=== PATIENT | male | born 1935 | race Native Hawaiian/Other Pacific Islander ===

== ENCOUNTER 2016-07-08 10:50 | Outpatient (CLI) | payer OTHER ==
[~2016-07-08 10:50] MED LIST: AMIT25TA22 PO; AMLO2.5T PO; AMOX875T8 PO; ASA LOW STR81 MG PO; BENICAR20 MG PO; BYSTOLIC2.5 MG PO; CARDURA XL4 MG PO; CLOP75TA2 PO; ENTERIC COATED325 MG PO; FLUOXETINE20 MG PO; FURO20TA67 PO; GLIP10TA66 PO; HYDR25TA60 PO; HYDROCHLOROT12.5 M1 PO; LEVEMIR SC; LEVO0.0529 PO; LEVOTHROID25 MCG PO; LIPITOR40 MG PO; METO25TA4 PO; MOBIC15 MG PO; NAPROSYN500 MG PO; NOVOLOG SC; PANT40TA PO; POTA20TA4 PO; PRAVACHOL20 MG PO; TAMS0.4C PO; TRAM50TA PO; ZYRTEC ALLGY10 MG PO
== END 2016-07-08 11:50 | disposition home or self-care (01) ==
LOC: US 10:50
DX: I73.89 Other specified peripheral vascular diseases (principal)

== ENCOUNTER 2016-08-17 08:29 | Outpatient (CLI) | payer OTHER ==
[2016-08-17 08:52] LABS: PLATELET COUNT 275 K/uL (142-355)
[2016-08-17 09:03] LABS: POTASSIUM 4.1 mmol/L (3.6-5.2)
== END 2016-08-17 09:29 | disposition home or self-care (01) ==
LOC: LABW 08:29
PROVIDERS: Nurse Practitioner
DX: E11.9 Type 2 diabetes mellitus without complications (principal); I25.10 Atherosclerotic heart disease of native coronary artery without angina pectoris; Z12.5 Encounter for screening for malignant neoplasm of prostate; E55.9 Vitamin D deficiency, unspecified; R53.83 Other fatigue; E78.00 Pure hypercholesterolemia, unspecified; R97.20 Elevated prostate specific antigen [PSA]
CPT/HCPCS: 36415; 80053; 80061; 82043; 82306; 82570; 83036; 84153; 84443; 85027

== ENCOUNTER 2016-09-12 17:18 | Outpatient (CLI) | payer OTHER | END 2016-09-12 17:24 | disposition short-term general hospital (02) | LOC: AMB 17:18 | DX: R53.1 Weakness (principal); R41.82 Altered mental status, unspecified; R51 Headache | CPT/HCPCS: A0425; A0427 ==

== ENCOUNTER 2016-09-12 17:25 | Emergency (ER) | payer OTHER ==
[~2016-09-12] VITALS: Ht 185.4 cm; Wt 79.4 kg
[2016-09-12 17:30] VITALS: TEMP 98.1
[2016-09-12 17:39] LABS: PLATELET COUNT 308 K/uL (142-355)
[2016-09-12 17:43] LABS: POTASSIUM 5.1 mmol/L (3.6-5.2)
[2016-09-12 17:53] LABS: PARTIAL THROMBOPLASTIN TIME 25.2 SECONDS (24.5-33.6)
[2016-09-12 18:52] VITALS: BP 159/65
== END 2016-09-12 18:57 | disposition short-term general hospital (02) ==
LOC: ED 17:25
PROVIDERS: Family Medicine
DX: G45.8 Other transient cerebral ischemic attacks and related syndromes (principal); I10 Essential (primary) hypertension; M62.81 Muscle weakness (generalized); E11.65 Type 2 diabetes mellitus with hyperglycemia; Z79.4 Long term (current) use of insulin; R41.82 Altered mental status, unspecified
CPT/HCPCS: 36415; 80053; 82550; 82962; 84484; 85027; 85610; 85730; 93005; 99291

== ENCOUNTER 2016-09-12 18:58 | Outpatient (CLI) | payer OTHER | END 2016-09-12 20:07 | disposition short-term general hospital (02) | LOC: AMB 18:58 | DX: G45.8 Other transient cerebral ischemic attacks and related syndromes (principal); I10 Essential (primary) hypertension; M62.81 Muscle weakness (generalized); E11.65 Type 2 diabetes mellitus with hyperglycemia; Z79.4 Long term (current) use of insulin; R41.82 Altered mental status, unspecified | CPT/HCPCS: A0425; A0427 ==

== ENCOUNTER 2016-10-23 21:25 | Inpatient (IN) | payer OTHER ==
[~2016-10-23] VITALS: Ht 172.7 cm; Wt 83.9 kg
[2016-10-23 22:04] VITALS: BP 173/96; TEMP 97.8
[2016-10-23 22:07] LABS: PLATELET COUNT 226 K/uL (142-355)
[2016-10-23 22:17] LABS: POTASSIUM 4.2 mmol/L (3.6-5.2); SODIUM 133 mmol/L (136-145)
[2016-10-23] MEDS ORDERED: LIPITOR80 MG PO (22:26)
[2016-10-23] MEDS ORDERED: LISI5TAB10 PO (22:27)
[2016-10-23] MEDS ORDERED: CLOP75TA2 PO (22:28)
[2016-10-23] MEDS ORDERED: GABA300C2 PO (22:28)
[2016-10-23] MEDS ORDERED: XARELTO20 MG PO (22:29)
[2016-10-23] MEDS ORDERED: HYDR5TAB9 PO (22:30)
[2016-10-23] MEDS ORDERED: NEOMYCIN/POLYMYXIN/H OP (22:34)
[2016-10-24] VITALS (23 sets, daily range): BP systolic 135–184; BP diastolic 58–83; TEMP 97–100.6
[2016-10-24 07:38] LABS: PLATELET COUNT 178 K/uL (142-355)
[2016-10-24 07:52] LABS: POTASSIUM 4.4 mmol/L (3.6-5.2)
[2016-10-25] VITALS (24 sets, daily range): BP systolic 134–205; BP diastolic 57–94; TEMP 97.5–99.2
[2016-10-25 06:12] LABS: PLATELET COUNT 183 K/uL (142-355)
[2016-10-25 06:15] LABS: POTASSIUM 3.8 mmol/L (3.6-5.2); SODIUM 137 mmol/L (136-145)
[2016-10-26] VITALS (18 sets, daily range): BP systolic 140–203; BP diastolic 59–107; TEMP 97.8–98.7
[2016-10-26 05:57] LABS: PLATELET COUNT 179 K/uL (142-355)
[2016-10-26 07:49] LABS: POTASSIUM 3.8 mmol/L (3.6-5.2); SODIUM 140 mmol/L (136-145)
[2016-10-27] VITALS (8 sets, daily range): BP systolic 140–175; BP diastolic 60–98; TEMP 98.2–98.5
[2016-10-27 05:47] LABS: PLATELET COUNT 171 K/uL (142-355)
[2016-10-27 06:15] LABS: POTASSIUM 3.6 mmol/L (3.6-5.2); SODIUM 140 mmol/L (136-145)
== END 2016-10-27 14:50 | disposition short-term general hospital (02) | DRG 440 ==
LOC: ED 21:25 → ICU 10-24 00:20
PROVIDERS: ADMIT Emergency Medicine
DX: K85.10 Biliary acute pancreatitis without necrosis or infection (principal); Z86.73 Personal history of transient ischemic attack (TIA), and cerebral infarction without residual deficits; K80.80 Other cholelithiasis without obstruction; D64.9 Anemia, unspecified; I10 Essential (primary) hypertension; E11.9 Type 2 diabetes mellitus without complications
CPT/HCPCS: 36415; 80048; 80053; 81000; 82150; 82550; 82962; 83690; 83735; 84484; 85027; 86318; 87040; 93005; 96361; 96372; 96374; 96376; 99285; J0360; J0744; J1200; J1650; J1885; J2175; J2405; J3411; J3475; J3490; Q9963

== ENCOUNTER 2016-10-27 14:57 | Outpatient (CLI) | payer OTHER ==
[~2016-10-27 14:57] MED LIST changes: +GABA300C2 PO; +HYDR5TAB9 PO; +LIPITOR80 MG PO; +LISI5TAB10 PO; +NEOMYCIN/POLYMYXIN/H OP; +XARELTO20 MG PO
== END 2016-10-27 15:16 | disposition short-term general hospital (02) ==
LOC: AMB 14:57
DX: K85.10 Biliary acute pancreatitis without necrosis or infection (principal); Z86.73 Personal history of transient ischemic attack (TIA), and cerebral infarction without residual deficits; K80.80 Other cholelithiasis without obstruction; D64.9 Anemia, unspecified; I10 Essential (primary) hypertension; E11.9 Type 2 diabetes mellitus without complications
CPT/HCPCS: A0425; A0429

== ENCOUNTER 2016-12-30 11:11 | Outpatient (CLI) | payer OTHER ==
[2016-12-30] MEDS ORDERED: PREG75CA PO (12:55)
[2016-12-30] MEDS ORDERED: TIZA4TAB5 PO (12:56)
[2016-12-30] MEDS ORDERED: LEVEMIR SC (12:58)
[2016-12-30] MEDS ORDERED: FLONASE AL50 MCG/ACT (17:45)
[2016-12-30] MEDS ORDERED: PRINIVIL5 MG OR (17:46)
[2016-12-30] MEDS ORDERED: ROBAXIN-750750 MG PO (17:47)
[2016-12-30] MEDS ORDERED: NEOMSUS6 OP (17:50)
== END 2016-12-30 11:15 | disposition short-term general hospital (02) ==
LOC: AMB 11:11
DX: R53.83 Other fatigue (principal); R53.1 Weakness
CPT/HCPCS: A0425; A0427

== ENCOUNTER 2016-12-30 11:15 | Inpatient (IN) | payer OTHER ==
[~2016-12-30] VITALS: Ht 172.7 cm; Wt 76.7 kg
[2016-12-30] VITALS (7 sets, daily range): BP systolic 128–201; BP diastolic 60–88; TEMP 97.5–97.9; Ht 172.7 cm; Wt 76.7 kg
[2016-12-30 12:05] LABS: PLATELET COUNT 235 K/uL (142-355)
[2016-12-30 12:13] LABS: POTASSIUM 4.7 mmol/L (3.6-5.2); SODIUM 136 mmol/L (136-145)
[2016-12-30] MEDS ORDERED: PREG75CA PO (12:55)
[2016-12-30] MEDS ORDERED: TIZA4TAB5 PO (12:56)
[2016-12-30] MEDS ORDERED: LEVEMIR SC (12:58)
[2016-12-30] MEDS ORDERED: FLONASE AL50 MCG/ACT (17:45)
[2016-12-30] MEDS ORDERED: PRINIVIL5 MG OR (17:46)
[2016-12-30] MEDS ORDERED: ROBAXIN-750750 MG PO (17:47)
[2016-12-30] MEDS ORDERED: NEOMSUS6 OP (17:50)
[2016-12-31] VITALS: BP 193/89; TEMP 97.3
[2016-12-31 04:00] VITALS: BP 163/71; TEMP 97.8
[2016-12-31 05:01] LABS: PLATELET COUNT 221 K/uL (142-355)
[2016-12-31 05:30] LABS: POTASSIUM 3.9 mmol/L (3.6-5.2); SODIUM 139 mmol/L (136-145)
[2016-12-31 08:00] VITALS: BP 170/72; TEMP 98.4
[2016-12-31 12:00] VITALS: BP 151/66; TEMP 98
[2016-12-31 16:00] VITALS: BP 138/69; TEMP 98
[2016-12-31 20:00] VITALS: BP 158/67; TEMP 98.3
[2017-01-01 00:04] VITALS: BP 136/64; TEMP 98.2
[2017-01-01 04:00] VITALS: BP 174/77; TEMP 98.5
[2017-01-01 05:44] LABS: PLATELET COUNT 214 K/uL (142-355)
[2017-01-01 08:00] VITALS: BP 147/88; TEMP 98.3
[2017-01-01 12:00] VITALS: BP 147/71; TEMP 98
--- NOTE | 2017-01-01 19:27 | NUR ---
193 PT LEFT VIA WC WITH FAMILY NO ACUATE DISTRESS NOTED. HOME MEDS RETURNED TO PT
== END 2017-01-01 19:21 | disposition home or self-care (01) | DRG 65 ==
LOC: ED 11:15 → MED/SURG 14:00
PROVIDERS: Emergency Medicine; ADMIT Emergency Medicine
DX: I63.412 Cerebral infarction due to embolism of left middle cerebral artery (principal); N39.0 Urinary tract infection, site not specified; G81.94 Hemiplegia, unspecified affecting left nondominant side; E03.8 Other specified hypothyroidism; R39.2 Extrarenal uremia; E88.09 Other disorders of plasma-protein metabolism, not elsewhere classified; E11.9 Type 2 diabetes mellitus without complications; N18.3 Chronic kidney disease, stage 3 (moderate)
CPT/HCPCS: 36415; 80053; 80307; 80320; 80329; 81000; 82550; 82948; 83605; 83735; 83880; 84443; 84484; 85027; 85610; 85730; 87088; 93005; 93306; 96360; 99284; G0479

== ENCOUNTER 2017-04-05 13:49 | Emergency (ER) | payer OTHER ==
[~2017-04-05] VITALS: Ht 172.7 cm; Wt 72.6 kg
[~2017-04-05 13:49] MED LIST changes: +FLONASE AL50 MCG/ACT; +NEOMSUS6 OP; +PREG75CA PO; +PRINIVIL5 MG OR; +ROBAXIN-750750 MG PO; +TIZA4TAB5 PO
[2017-04-05 14:00] VITALS: TEMP 97.9
[2017-04-05 14:37] LABS: PLATELET COUNT 238 K/uL (142-355)
[2017-04-05 14:45] LABS: POTASSIUM 4.3 mmol/L (3.6-5.2)
[2017-04-05 14:56] LABS: PARTIAL THROMBOPLASTIN TIME 26.1 SECONDS (24.5-33.6)
[2017-04-05 15:14] VITALS: BP 172/84
== END 2017-04-05 15:20 | disposition home or self-care (01) ==
LOC: ED 13:49
PROVIDERS: Family Medicine
DX: M79.604 Pain in right leg (principal); I73.89 Other specified peripheral vascular diseases
CPT/HCPCS: 36415; 80053; 81000; 85027; 85610; 85730; 87040; 87077; 87185; 87186; 87205; 99283

== ENCOUNTER 2017-05-25 09:21 | Emergency (ER) | payer OTHER ==
[~2017-05-25] VITALS: Ht 172.7 cm; Wt 80.7 kg
[2017-05-25 09:28] VITALS: TEMP 97.8
[2017-05-25 13:00] VITALS: BP 180/72
== END 2017-05-25 13:06 | disposition home or self-care (01) ==
LOC: ED 09:21
DX: T81.4XXA Infection following a procedure, initial encounter (principal); Z85.828 Personal history of other malignant neoplasm of skin
CPT/HCPCS: 96372; 99282; J0696

== ENCOUNTER 2017-05-26 10:50 | Emergency (ER) | payer OTHER ==
[~2017-05-26] VITALS: Ht 172.7 cm; Wt 81.6 kg
[2017-05-26 12:39] VITALS: BP 160/70; TEMP 98.1
== END 2017-05-26 12:46 | disposition home or self-care (01) ==
LOC: ED 10:50
DX: Z48.01 Encounter for change or removal of surgical wound dressing (principal)
CPT/HCPCS: 99281

== ENCOUNTER 2017-05-27 14:17 | Emergency (ER) | payer OTHER ==
[~2017-05-27] VITALS: Ht 172.7 cm; Wt 77.1 kg
[2017-05-27 14:24] VITALS: TEMP 98.1
[2017-05-27 15:19] VITALS: BP 156/74
== END 2017-05-27 15:28 | disposition home or self-care (01) ==
LOC: ED 14:17
DX: Z48.01 Encounter for change or removal of surgical wound dressing (principal)
CPT/HCPCS: 99282

== ENCOUNTER 2017-07-25 09:41 | Outpatient (CLI) | payer OTHER | END 2017-07-25 19:40 | disposition home or self-care (01) | LOC: RAD 09:41 | DX: M79.672 Pain in left foot (principal) ==

== ENCOUNTER 2017-09-06 12:02 | Emergency (ER) | payer OTHER ==
[~2017-09-06] VITALS: Ht 172.7 cm; Wt 83.9 kg
[2017-09-06] MEDS ORDERED: METFORMIN HCL500 M1 PO (12:16)
[2017-09-06] MEDS ORDERED: ASPIR-8181 MG PO (12:17)
[2017-09-06 12:40] LABS: PLATELET COUNT 227 K/uL (142-355)
[2017-09-06 13:05] VITALS: BP 161/84; TEMP 98.1
== END 2017-09-06 13:05 | disposition home or self-care (01) ==
LOC: ED 12:02
PROVIDERS: Family Medicine
DX: S99.822A Other specified injuries of left foot, initial encounter (principal); W20.8XXA Other cause of strike by thrown, projected or falling object, initial encounter; Y92.89 Other specified places as the place of occurrence of the external cause
CPT/HCPCS: 36415; 80053; 85027; 96372; 99283; J1885; J2405

== ENCOUNTER → 2018-01-17 | Outpatient (CLI) | payer OTHER ==
[~2018-01-17] MED LIST changes: +ASPIR-8181 MG PO; +DOCU100C10 PO; +FERROUS SULF325 M1 PO; +INSUINJP SC; +LISI20TA11 PO; +LYRICA 100 MG100 MG PO; +LYRICA100 MG PO; +METFORMIN HCL500 M1 PO; +PEPCID20 MG PO
== END | disposition short-term general hospital (02) ==
LOC: AMB 13:52
DX: R41.82 Altered mental status, unspecified (principal)
CPT/HCPCS: A0425; A0427

== ENCOUNTER 2018-01-18 11:42 | Outpatient (CLI) | payer OTHER ==
[~2018-01-18 11:42] MED LIST changes: -LYRICA100 MG PO
== END 2018-01-18 11:54 | disposition short-term general hospital (02) ==
LOC: AMB 11:42
DX: R07.89 Other chest pain (principal); Z86.73 Personal history of transient ischemic attack (TIA), and cerebral infarction without residual deficits; E03.8 Other specified hypothyroidism; I73.89 Other specified peripheral vascular diseases; E11.65 Type 2 diabetes mellitus with hyperglycemia; I12.9 Hypertensive chronic kidney disease with stage 1 through stage 4 chronic kidney disease, or unspecified chronic kidney disease; E11.22 Type 2 diabetes mellitus with diabetic chronic kidney disease; N18.4 Chronic kidney disease, stage 4 (severe); R41.82 Altered mental status, unspecified
CPT/HCPCS: A0425; A0429

== ENCOUNTER 2018-04-09 09:44 | Emergency (ER) | payer OTHER ==
[~2018-04-09] VITALS: Ht 172.7 cm; Wt 77.6 kg
[2018-04-09 09:53] VITALS: TEMP 98.01
[2018-04-09] MEDS ORDERED: LYRICA100 MG PO (09:56)
[2018-04-09 13:18] VITALS: BP 155/98
== END 2018-04-09 13:18 | disposition home or self-care (01) ==
LOC: ED 09:44
DX: S40.012A Contusion of left shoulder, initial encounter (principal); S40.022A Contusion of left upper arm, initial encounter; W17.89XA Other fall from one level to another, initial encounter; Y92.89 Other specified places as the place of occurrence of the external cause
CPT/HCPCS: 99283

== ENCOUNTER 2018-04-15 20:03 | Outpatient (CLI) | payer OTHER ==
[~2018-04-15 20:03] MED LIST changes: +LYRICA100 MG PO
== END 2018-04-15 20:08 | disposition short-term general hospital (02) ==
LOC: AMB 20:03
DX: M54.89 Other dorsalgia (principal); W17.89XA Other fall from one level to another, initial encounter; Z91.81 History of falling; Y93.89 Activity, other specified; Y92.018 Other place in single-family (private) house as the place of occurrence of the external cause
CPT/HCPCS: A0425; A0427

== ENCOUNTER 2018-04-15 20:11 | Emergency (ER) | payer OTHER ==
[~2018-04-15] VITALS: Ht 172.7 cm; Wt 77.6 kg
[2018-04-15 20:11] VITALS: TEMP 98.1
[2018-04-15 21:16] LABS: PLATELET COUNT 212 K/uL (142-355)
[2018-04-15 23:05] VITALS: BP 198/79
== END 2018-04-15 23:05 | disposition home or self-care (01) ==
LOC: ED 20:11
PROVIDERS: Allergy & Immunology
DX: S40.012A Contusion of left shoulder, initial encounter (principal); S40.022A Contusion of left upper arm, initial encounter; S00.93XA Contusion of unspecified part of head, initial encounter; S10.83XA Contusion of other specified part of neck, initial encounter; S09.8XXA Other specified injuries of head, initial encounter; M79.602 Pain in left arm; W18.39XA Other fall on same level, initial encounter; Y92.89 Other specified places as the place of occurrence of the external cause
CPT/HCPCS: 80053; 85027; 96372; 99283; J1885; J2175

== ENCOUNTER 2018-06-29 14:14 | Outpatient (CLI) | payer OTHER | END 2018-06-29 20:38 | disposition home or self-care (01) | LOC: RAD 14:14 | DX: M25.519 Pain in unspecified shoulder (principal) ==

== ENCOUNTER 2018-07-28 21:04 | Emergency (ER) | payer OTHER ==
[~2018-07-28] VITALS: Ht 172.7 cm; Wt 77.6 kg
[2018-07-28 21:05] VITALS: TEMP 98.6
[2018-07-28 22:26] LABS: PLATELET COUNT 170 K/uL (142-355)
[2018-07-28 22:37] LABS: SODIUM 138 mmol/L (136-145)
[2018-07-29 01:02] VITALS: BP 159/69
== END 2018-07-29 01:51 | disposition home or self-care (01) ==
LOC: ED 21:04
PROVIDERS: Family Medicine
DX: G25.2 Other specified forms of tremor (principal); M25.512 Pain in left shoulder; N28.9 Disorder of kidney and ureter, unspecified
CPT/HCPCS: 36415; 36600; 80053; 81000; 82550; 82553; 82805; 83605; 84484; 85027; 87040; 93005; 99283

== ENCOUNTER 2018-09-04 12:40 | Emergency (ER) | payer OTHER ==
[~2018-09-04] VITALS: Ht 172.7 cm; Wt 77.6 kg
[2018-09-04 13:00] VITALS: TEMP 98.2
[2018-09-04 15:17] VITALS: BP 160/69
== END 2018-09-04 15:18 | disposition home or self-care (01) ==
LOC: ED 12:40
DX: S22.32XA Fracture of one rib, left side, initial encounter for closed fracture (principal); R07.89 Other chest pain; R51 Headache; W17.89XA Other fall from one level to another, initial encounter; Y93.H9 Activity, other involving exterior property and land maintenance, building and construction; Y92.89 Other specified places as the place of occurrence of the external cause
CPT/HCPCS: 99283; J1885

== ENCOUNTER 2018-12-14 07:19 | Outpatient (CLI) | payer OTHER | END 2018-12-14 19:40 | disposition home or self-care (01) | LOC: NM 07:19 | DX: R07.89 Other chest pain (principal) | CPT/HCPCS: 93005; A9500; J2785 ==

== ENCOUNTER 2018-12-14 11:55 | Emergency (ER) | payer OTHER ==
[~2018-12-14] VITALS: Ht 172.7 cm; Wt 72.6 kg
[2018-12-14 12:52] LABS: PLATELET COUNT 205 K/uL (142-355)
[2018-12-14 13:17] LABS: POTASSIUM 4.6 mmol/L (3.6-5.2); SODIUM 137 mmol/L (136-145)
[2018-12-14 19:05] VITALS: BP 135/64; TEMP 98.1
== END 2018-12-14 19:05 | disposition short-term general hospital (02) ==
LOC: ED 11:55
PROVIDERS: Student in an Organized Health Care Education/Training Program
DX: R07.89 Other chest pain (principal); R94.39 Abnormal result of other cardiovascular function study; R10.13 Epigastric pain
CPT/HCPCS: 36415; 80053; 81000; 82150; 83690; 84484; 85027; 93005; 96374; 96375; 96376; 99284; J0360; J1885; J2405; Q9963

== ENCOUNTER 2018-12-14 19:15 | Outpatient (CLI) | payer OTHER | END 2018-12-14 20:32 | disposition short-term general hospital (02) | LOC: AMB 19:15 | DX: R07.89 Other chest pain (principal); M25.512 Pain in left shoulder; R51 Headache; M79.605 Pain in left leg; M79.604 Pain in right leg; R94.39 Abnormal result of other cardiovascular function study | CPT/HCPCS: A0425; A0427 ==

== ENCOUNTER 2019-01-05 13:23 | Emergency (ER) | payer OTHER ==
[~2019-01-05] VITALS: Ht 172.7 cm; Wt 72.6 kg
[2019-01-05 13:25] VITALS: TEMP 98.1
[2019-01-05 14:58] VITALS: BP 148/64
== END 2019-01-05 14:58 | disposition home or self-care (01) ==
LOC: ED 13:23
DX: S09.8XXA Other specified injuries of head, initial encounter (principal); S60.212A Contusion of left wrist, initial encounter; S90.02XA Contusion of left ankle, initial encounter; M54.89 Other dorsalgia; W01.0XXA Fall on same level from slipping, tripping and stumbling without subsequent striking against object, initial encounter; Y92.89 Other specified places as the place of occurrence of the external cause
CPT/HCPCS: 99283

== ENCOUNTER 2019-03-18 15:53 | Observation (INO) | payer OTHER ==
[~2019-03-18] VITALS: Ht 172.7 cm; Wt 75.6 kg
[2019-03-18 16:07] VITALS: BP 232/96; TEMP 209.8
[2019-03-18 16:21] LABS: PLATELET COUNT 174 K/uL (142-355)
[2019-03-18 16:30] LABS: SODIUM 135 mmol/L (136-145)
[2019-03-18 16:37] LABS: PARTIAL THROMBOPLASTIN TIME 24.1 SECONDS (24.5-33.6)
[2019-03-18 16:44] VITALS: BP 220/93
[2019-03-18 19:07] VITALS: BP 82/43; TEMP 97.9; Ht 172.7 cm; Wt 75.6 kg
[2019-03-18 20:00] VITALS: BP 80/43; TEMP 98.2
[2019-03-18 23:53] VITALS: BP 113/63; TEMP 98.3
[2019-03-19 03:58] VITALS: BP 96/49; TEMP 97.6
[2019-03-19 08:00] VITALS: BP 113/58; TEMP 97.77
[2019-03-19 12:08] VITALS: BP 116/57; TEMP 97.9
== END 2019-03-19 13:45 | disposition home or self-care (01) ==
LOC: ED 15:53 → MED/SURG 17:00
PROVIDERS: ADMIT Hospitalist
DX: R07.89 Other chest pain (principal); R06.02 Shortness of breath; E11.9 Type 2 diabetes mellitus without complications; I25.10 Atherosclerotic heart disease of native coronary artery without angina pectoris; E78.00 Pure hypercholesterolemia, unspecified; R19.7 Diarrhea, unspecified; Z95.1 Presence of aortocoronary bypass graft; R11.2 Nausea with vomiting, unspecified; I50.9 Heart failure, unspecified; K31.84 Gastroparesis; R53.1 Weakness; I11.0 Hypertensive heart disease with heart failure
CPT/HCPCS: 36415; 80053; 81000; 82150; 82550; 83036; 83690; 83880; 84484; 85027; 85610; 85730; 93005; 96374; 96375; 99220; 99284; G0378; J1170; J1815; J1940

== ENCOUNTER 2019-04-16 15:22 | Emergency (ER) | payer OTHER ==
[~2019-04-16] VITALS: Ht 172.7 cm; Wt 77.7 kg
[2019-04-16 15:32] VITALS: TEMP 98.7
[2019-04-16 18:10] VITALS: BP 128/80
== END 2019-04-16 18:10 | disposition home or self-care (01) ==
LOC: ED 15:22
DX: M25.572 Pain in left ankle and joints of left foot (principal); M77.32 Calcaneal spur, left foot
CPT/HCPCS: 96372; 99283; J1885

== ENCOUNTER 2019-06-01 11:14 | Emergency (ER) | payer OTHER ==
[~2019-06-01] VITALS: Ht 172.7 cm; Wt 77.6 kg
[2019-06-01 11:35] VITALS: TEMP 98.1
[2019-06-01 14:15] VITALS: BP 181/90
== END 2019-06-01 14:15 | disposition home or self-care (01) ==
LOC: ED 11:14
DX: J06.9 Acute upper respiratory infection, unspecified (principal)
CPT/HCPCS: 87502; 87651; 96372; 99283; J1885

== ENCOUNTER 2019-06-18 14:07 | Inpatient (IN) | payer OTHER ==
[2019-06-18] VITALS (9 sets, daily range): BP systolic 136–165; BP diastolic 55–84; TEMP 97.6–99; Ht 172.7 cm; Wt 78.6 kg
[~2019-06-18] VITALS: Ht 172.7 cm; Wt 78.6 kg
[2019-06-18 14:47] LABS: PLATELET COUNT 168 K/uL (142-355)
[2019-06-18 15:01] LABS: POTASSIUM 4.5 mmol/L (3.6-5.2); SODIUM 133 mmol/L (136-145)
[2019-06-18] MEDS ORDERED: CARV6.25 PO (17:25)
[2019-06-18] MEDS ORDERED: GABA300C2 PO (17:26)
[2019-06-18] MEDS ORDERED: SIMV20TA2 PO (17:27)
[2019-06-18] MEDS ORDERED: TAMS0.4C PO (17:27)
[2019-06-18] MEDS ORDERED: PRED20TA27 PO (17:28)
[2019-06-18] MEDS ORDERED: XYZAL ALLERGY 245 MG PO (17:32)
[2019-06-18] MEDS ORDERED: TIROSINT75 MCG PO (17:33)
[2019-06-18] MEDS ORDERED: MOBIC15 MG PO (17:34)
[2019-06-18 19:27] LABS: PARTIAL THROMBOPLASTIN TIME 24.1 SECONDS (24.5-33.6)
[2019-06-19] VITALS: BP 148/70; TEMP 97.3
[2019-06-19 04:00] VITALS: BP 138/74; TEMP 97.5
[2019-06-19 08:00] VITALS: BP 144/62; TEMP 97.5
[2019-06-19 08:26] LABS: PLATELET COUNT 153 K/uL (142-355)
[2019-06-19 08:45] LABS: POTASSIUM 4.5 mmol/L (3.6-5.2)
[2019-06-19 12:00] VITALS: BP 130/52; TEMP 98.8
[2019-06-19 16:00] VITALS: BP 120/60; TEMP 98.8
[2019-06-19 20:00] VITALS: BP 140/55; TEMP 99
[2019-06-20] VITALS: BP 157/44; TEMP 98
[2019-06-20 04:00] VITALS: BP 162/67; TEMP 98.2
[2019-06-20 08:00] VITALS: BP 157/67; TEMP 97.9
[2019-06-20 12:00] VITALS: BP 148/55; TEMP 98.5
[2019-06-20 16:00] VITALS: BP 168/74; TEMP 98.9
[2019-06-20 20:00] VITALS: BP 170/67; TEMP 98.3
[2019-06-21] VITALS: BP 175/68; TEMP 98.4
[2019-06-21 04:00] VITALS: BP 195/87; TEMP 97.7
[2019-06-21 08:00] VITALS: BP 198/87; TEMP 97.8
[2019-06-21 12:00] VITALS: BP 202/80; TEMP 97.8
[2019-06-21 16:00] VITALS: BP 187/77; TEMP 97.8
[2019-06-21 20:00] VITALS: BP 165/64; TEMP 98.3
[2019-06-22 04:00] VITALS: BP 169/69; TEMP 98.4
[2019-06-22 08:00] VITALS: BP 136/58; TEMP 98.2
[2019-06-22 12:00] VITALS: BP 135/61; TEMP 98.3
[2019-06-22] MEDS ORDERED: PRED10TA27 PO (16:22)
[2019-06-22] MEDS ORDERED: AMLODIPINE BESYLATE PO (16:22)
== END 2019-06-22 17:12 | disposition home or self-care (01) | DRG 65 ==
LOC: ED 14:07 → MED/SURG 16:15
PROVIDERS: Family Medicine; ADMIT Emergency Medicine
DX: I63.89 Other cerebral infarction (principal); E87.2 Acidosis; I25.10 Atherosclerotic heart disease of native coronary artery without angina pectoris; N40.0 Benign prostatic hyperplasia without lower urinary tract symptoms; I12.9 Hypertensive chronic kidney disease with stage 1 through stage 4 chronic kidney disease, or unspecified chronic kidney disease; E11.22 Type 2 diabetes mellitus with diabetic chronic kidney disease; N18.3 Chronic kidney disease, stage 3 (moderate); F80.1 Expressive language disorder; E86.0 Dehydration; E66.8 Other obesity; I69.391 Dysphagia following cerebral infarction; R13.19 Other dysphagia
CPT/HCPCS: 36415; 80053; 80307; 81000; 82550; 83036; 83605; 83735; 83880; 84439; 84443; 84484; 84550; 85027; 85379; 85610; 85730; 87040; 87502; 87651; 93005; 93306; 96360; 96365; 96375; 99284; J0360; J0696; J1815; J2405; J3490

== ENCOUNTER 2019-06-25 16:28 | Outpatient (CLI) | payer OTHER ==
[~2019-06-25 16:28] MED LIST changes: +AMLODIPINE BESYLATE PO; +CARV6.25 PO; +PRED10TA27 PO; +PRED20TA27 PO; +SIMV20TA2 PO; +TIROSINT75 MCG PO; +XYZAL ALLERGY 245 MG PO
[2019-06-25 16:53] LABS: PLATELET COUNT 172 K/uL (142-355)
[2019-06-25 17:09] LABS: POTASSIUM 4.9 mmol/L (3.6-5.2)
== END 2019-06-25 20:20 | disposition home or self-care (01) ==
LOC: LABW 16:28
PROVIDERS: Nurse Practitioner Family
DX: E11.9 Type 2 diabetes mellitus without complications (principal); I10 Essential (primary) hypertension; R06.02 Shortness of breath; R53.83 Other fatigue
CPT/HCPCS: 36415; 80053; 84443; 85027

== ENCOUNTER 2019-06-29 15:32 | Emergency (ER) | payer OTHER ==
[~2019-06-29] VITALS: Ht 172.7 cm; Wt 78.5 kg
[2019-06-29 15:42] VITALS: TEMP 99.5
[2019-06-29 16:18] LABS: PLATELET COUNT 198 K/uL (142-355)
[2019-06-29 16:24] LABS: SODIUM 137 mmol/L (136-145)
[2019-06-29 16:25] LABS: POTASSIUM 4.9 mmol/L (3.6-5.2)
[2019-06-29] MEDS ORDERED: TIROSINT50 MCG PO (16:51)
[2019-06-29 17:02] LABS: PARTIAL THROMBOPLASTIN TIME 21.7 SECONDS (24.5-33.6)
[2019-06-29 19:50] VITALS: BP 156/71
== END 2019-06-29 20:00 | disposition home or self-care (01) ==
LOC: ED 15:44
PROVIDERS: Family Medicine
DX: G45.9 Transient cerebral ischemic attack, unspecified (principal)
CPT/HCPCS: 80053; 84484; 85027; 85610; 85730; 93005; 99284

== ENCOUNTER 2019-07-17 15:28 | Outpatient (CLI) | payer OTHER ==
[~2019-07-17 15:28] MED LIST changes: +TIROSINT50 MCG PO
== END 2019-07-17 19:31 | disposition home or self-care (01) ==
LOC: RAD 15:28
DX: I63.9 Cerebral infarction, unspecified (principal); M25.551 Pain in right hip; R47.01 Aphasia

== ENCOUNTER 2019-08-10 20:57 | Inpatient (IN) | payer OTHER ==
[~2019-08-10] VITALS: Ht 172.7 cm; Wt 76.8 kg
[2019-08-10 21:09] VITALS: BP 172/64; TEMP 98.6
[2019-08-10 22:03] LABS: PLATELET COUNT 192 K/uL (142-355)
[2019-08-10 22:13] LABS: POTASSIUM 4.7 mmol/L (3.6-5.2)
[2019-08-11] VITALS (10 sets, daily range): BP systolic 131–154; BP diastolic 53–80; TEMP 98.2–99.5; Ht 172.7 cm; Wt 76.8 kg
[2019-08-12] VITALS: BP 159/52; TEMP 99.3
[2019-08-12 04:00] VITALS: BP 146/55; TEMP 99.7
[2019-08-12 08:00] VITALS: BP 148/61; TEMP 98.7
[2019-08-12 12:00] VITALS: BP 145/63; TEMP 98.6
[2019-08-12 16:00] VITALS: BP 124/55; TEMP 98.8
[2019-08-12 20:00] VITALS: BP 141/53; TEMP 100.5
[2019-08-13] VITALS: BP 110/47; TEMP 98.9
[2019-08-13 04:00] VITALS: BP 117/57; TEMP 98.8
[2019-08-13 12:00] VITALS: BP 113/45; TEMP 99.2
[2019-08-13 14:16] VITALS: BP 113/45; TEMP 99.2
[2019-08-13 19:34] VITALS: BP 118/50; TEMP 98.4
[2019-08-13 20:19] VITALS: BP 107/41; TEMP 98.1
[2019-08-14] VITALS: BP 123/51; TEMP 98.9
[2019-08-14 04:00] VITALS: BP 142/55; TEMP 98.1
[2019-08-14 08:00] VITALS: BP 133/55; TEMP 97.4
[2019-08-14 12:00] VITALS: BP 140/58; TEMP 97.9
[2019-08-14 16:00] VITALS: BP 135/69; TEMP 98.5
[2019-08-14 20:00] VITALS: BP 133/51; TEMP 98.3
[2019-08-15] VITALS: BP 136/54; TEMP 98.4
[2019-08-15 04:00] VITALS: BP 141/56; TEMP 98.4
[2019-08-15 08:00] VITALS: BP 142/57; TEMP 98.6
[2019-08-15 12:00] VITALS: BP 130/50; TEMP 98.6
[2019-08-15 16:00] VITALS: BP 135/58; TEMP 98.5
[2019-08-15 20:00] VITALS: BP 146/57; TEMP 98.7
[2019-08-16] VITALS: BP 139/53; TEMP 98.5
[2019-08-16 04:00] VITALS: BP 151/51; TEMP 98.6
[2019-08-16 08:00] VITALS: BP 162/58; TEMP 98
[2019-08-16 12:00] VITALS: BP 123/45; TEMP 98.7
[2019-08-16 16:00] VITALS: BP 155/59; TEMP 98.3
[2019-08-16 20:00] VITALS: BP 135/53; TEMP 98.4
[2019-08-17] VITALS: BP 136/57; TEMP 98.6
[2019-08-17 04:00] VITALS: BP 163/61; TEMP 97.5
[2019-08-17 08:00] VITALS: BP 159/59; TEMP 97.6
[2019-08-17 12:00] VITALS: BP 154/63; TEMP 98.3
[2019-08-17] MEDS ORDERED: DOK100 MG PO (18:29)
[2019-08-17] MEDS ORDERED: INSUINJP SC (18:31)
[2019-08-17] MEDS ORDERED: MOBIC15 MG PO (18:32)
[2019-08-17] MEDS ORDERED: TRAMADOL HYDROC50 MG PO (18:36)
== END 2019-08-17 15:15 | disposition still patient (30) | DRG 683 ==
LOC: ED 20:57 → MED/SURG 08-11 09:49
PROVIDERS: Family Medicine; ADMIT Emergency Medicine
DX: N17.8 Other acute kidney failure (principal); I69.359 Hemiplegia and hemiparesis following cerebral infarction affecting unspecified side; M25.551 Pain in right hip; M79.631 Pain in right forearm; Z91.81 History of falling; R62.7 Adult failure to thrive; I25.10 Atherosclerotic heart disease of native coronary artery without angina pectoris; Z95.1 Presence of aortocoronary bypass graft; N40.0 Benign prostatic hyperplasia without lower urinary tract symptoms; D50.8 Other iron deficiency anemias; I10 Essential (primary) hypertension; G62.89 Other specified polyneuropathies; Z79.4 Long term (current) use of insulin; E03.8 Other specified hypothyroidism; K21.9 Gastro-esophageal reflux disease without esophagitis; Z68.25 Body mass index [BMI] 25.0-25.9, adult; E11.42 Type 2 diabetes mellitus with diabetic polyneuropathy; R53.1 Weakness; R26.89 Other abnormalities of gait and mobility
CPT/HCPCS: 36415; 80053; 84443; 85027; 93005; 96374; 96375; 99284; J1815; J1885; J2175; J2405

== ENCOUNTER 2019-08-17 09:30 | Inpatient (IN) | payer OTHER ==
[~2019-08-17] VITALS: Ht 172.7 cm; Wt 76.3 kg
--- NOTE | 2019-08-17 13:53 | NUR ---
Mr. Westfall is a 83 year old white male admitted to [facility] Swing bed program under the services of Dr. Mayer. Prior to swing bed status he was an inpatient here at [facility]. Patient is found to have a dx of degenerative disc disease, HX. of CVA with right sided weakness, recent falls, generalized weaknedd, deconditioning, failure to thrive, leukosytosis renal insufficiency, diabetes, hypertension, hypothyroidism, dysphagia, PVD and acid reflux disease. Mr. Westfall requires 24-hour skilled care, which as a practical matter can only be done on a inpatient basis because he is a and lives in an unstable home inviroment with his son and daughter in law who has told him not to return. His other son is unable to care for him at this time. Mr. Westfall needs help with all ADL's transfers and ambulation. Case management and MDS will continu to observe and assist with [place] medically related psychosocial needs PRN.
[2019-08-17 15:51] LABS: PLATELET COUNT 229 K/uL (142-355)
[2019-08-17 16:06] VITALS: BP 167/73; TEMP 98; Ht 172.7 cm; Wt 76.3 kg
[2019-08-17 16:13] LABS: POTASSIUM 4.4 mmol/L (3.6-5.2)
[2019-08-17] MEDS ORDERED: DOK100 MG PO (18:29)
[2019-08-17] MEDS ORDERED: INSUINJP SC (18:31)
[2019-08-17] MEDS ORDERED: MOBIC15 MG PO (18:32)
[2019-08-17] MEDS ORDERED: TRAMADOL HYDROC50 MG PO (18:36)
[2019-08-17 20:00] VITALS: BP 101/68; TEMP 98.9
--- NOTE | 2019-08-18 07:59 | NUR ---
Patient was admitted to the Swing Bed Program at [facility] d/t weakness, falling, deconditioning, acute kidney injury and given IV fluids with no improvement and is on a Renal diet, interverterbral disc, MN, CP, CRD, Anemia, Dysphagia d/t recent stroke, HTN, CVA, UTI, and labs showed alb, RBC, Hgb, Hct, alt all depressed and BUN 23 and gl 177 both elevated. 68" at 167.7 lbs. and IBW = 154+/-10% (139 to 169 lbs.) and kcal needs x 25 = 1750, x 30 = 2100, x 35 = 2450, x 40 = 2800 kcal/day, protein needs x .8 to 1.5 = 56 to 105 grams per day. BMI = 25.5 overweight and is 109% IBW. Recommendations: 1-Add 2100 Diabetes High Fiber to diet plan along with Renal (Low Na, K and P04) 2-Increase fluids as MD permits d/t dx. 3-ST to evaluate d/t Dysphagia 4-Add MVI 1 PO q day with appetite stimulant (Dx. FTT) 5-Add Vitamin C 500 mg BID (Preventative)
[2019-08-18 08:14] VITALS: BP 130/60; TEMP 98.3
[2019-08-19 08:00] VITALS: BP 150/78; TEMP 98
--- NOTE | 2019-08-19 17:20 | NUR ---
PT SITTING UP IN BED WITH EYES OPENED. PT WORKED WITH PHYSICAL THERAPY. USES URINAL AND TRANSFERS TO BS COMMODE WITH WALKER AND ASSIST X 1. TAKES MEDS WHOLE WITH NO DISTRESS NOTED. NO ACUTE DISTRESS NOTED, AND CALL LIGHT WITHIN REACH. WILL CONTINUE TO MONITOR.
[2019-08-19 20:00] VITALS: BP 137/62; TEMP 98.9
[2019-08-20 08:00] VITALS: BP 123/57; TEMP 98.5
[2019-08-20] MEDS ORDERED: OMEP40CA PO (09:13)
[2019-08-20] MEDS ORDERED: TYLENOL325 MG PO (09:16)
[2019-08-20] MEDS ORDERED: TRAMADOL HYDROC50 MG PO (09:17)
[2019-08-20] MEDS ORDERED: ALLO100T22 PO (09:19)
[2019-08-20] MEDS ORDERED: MELATONIN3 M1 PO (09:20)
[2019-08-20] MEDS ORDERED: MELOXICAM7.5 MG PO (09:21)
[2019-08-20] MEDS ORDERED: MIRALAX3350 N1 PO (09:23)
[2019-08-20] MEDS ORDERED: NYSTATIN100000 UNI PO (09:24)
[2019-08-20] MEDS ORDERED: OXYB5TAB56 PO (09:26)
[2019-08-20] MEDS ORDERED: PRED10TA27 PO (09:27)
[2019-08-20] MEDS ORDERED: HYDR25TA60 PO (09:29)
[2019-08-20] MEDS ORDERED: KLOR-CON M2020 MEQ PO (09:30)
[2019-08-20] MEDS ORDERED: FURO40TA93 PO (09:31)
[2019-08-20] MEDS ORDERED: EUTHYROX88 MCG PO (09:32)
[2019-08-20] MEDS ORDERED: FLUTMIS6 PO (09:35)
[2019-08-20] MEDS ORDERED: ALLEGRA ALRG180 M1 PO (09:36)
[2019-08-20 20:00] VITALS: BP 141/60; TEMP 98.1
[2019-08-21 08:00] VITALS: BP 136/58; TEMP 98.9
[2019-08-21 08:33] VITALS: BP 136/58; TEMP 98.9
--- NOTE | 2019-08-21 12:32 | NUR ---
Mr. Alarcon has an appointment on 08/29/19 @ 10:[address] [place] [address] Mac who is a farm product purchaser. I am unable to reach Mr. alarcons son to notify him of this appt. at this time. I will try again in two hours.
--- NOTE | 2019-08-21 12:39 | NUR ---
[facility].
--- NOTE | 2019-08-21 18:03 | NUR ---
DR. FAULKNER AT PT BEDSIDE FOR CONSULT AT 1705. NO NEW ORDERS AT THIS TIME. PT IS OKAY TO AMBULATE WITH WALKER. WEIGHT BEARING ON RIGHT SIDE TOLERATE WITH WALKER. NO SX REQUIRED. SHOULD HEAL IN 6-8 WKS. CONTINUE REHAB TOLERATED. F/U AFTER D/C OUTPT.
[2019-08-21 20:00] VITALS: BP 124/55; TEMP 98.2
[2019-08-22 08:00] VITALS: BP 130/63; TEMP 97.7
[2019-08-22 20:00] VITALS: BP 126/76; TEMP 98.3
[2019-08-23 08:00] VITALS: BP 147/61; TEMP 98.1
[2019-08-23 20:00] VITALS: BP 148/59; TEMP 98.5
[2019-08-24 08:00] VITALS: BP 142/58; TEMP 97.9
--- NOTE | 2019-08-24 11:20 | NUR ---
PT RESTING IN BED. ADMINISTERED MEDICATION. USES W/C FOR MOBILITY. CALL LIGHT IN REACH.
[2019-08-24 20:00] VITALS: BP 122/54; TEMP 98
[2019-08-25 08:00] VITALS: BP 128/79; TEMP 98
[2019-08-25 19:59] VITALS: BP 131/65; TEMP 98.2
[2019-08-26 08:00] VITALS: BP 161/64; TEMP 99
[2019-08-26 20:00] VITALS: BP 126/50; TEMP 98.5
[2019-08-27 08:00] VITALS: BP 123/54; TEMP 98.2
[2019-08-27 20:00] VITALS: BP 121/71; TEMP 97.6
[2019-08-28 08:00] VITALS: BP 112/61; TEMP 97.5
[2019-08-28 12:47] LABS: PLATELET COUNT 256 K/uL (142-355)
[2019-08-28 12:57] LABS: POTASSIUM 5.3 mmol/L (3.6-5.2)
--- NOTE | 2019-08-28 14:01 | NUR ---
1100 NOTED PT TO BE LETHARGIC AND SPEECH SLIGHTLY SLURRED. PT DENIES ANY CHEST PAIN OR PROBLEMS AT THIS TIME. HAD TO RE-DIRECT PT WITH SIPPING THUR STRAW TO TAKE MEDS. DR BROWN INFORMED. 1115 NEW ORDERS REC'D FOR LABS AND URINE 1400 URINE OBTAINED PER ORDERS AND SENT TO LAB. PT NOTED TO BE AWAKE AND ALERT NO PROBLEMS NOTED WITH SPEECH AT THIS TIME. WILL CON'T TO MONITOR.
[2019-08-28 20:00] VITALS: BP 132/49; TEMP 98.2
--- NOTE | 2019-08-29 06:59 | NUR ---
Admitted to the Swing Bed Program and was admitted with generalized weakness, recurrent fall, and acute renal failure, and is on a renal diet and is a 83YOM, and has other interverterbral disc, CRD, Anemia, dysphagia d/t stroke, shingles, gastritis. UTI, CP, DMII, gallbladder, HTN, TIA, PVD, wound care to left foot and FTT, ARF, and labs reveal HGB, HCT, RBC, Na, Ca, ALT and alb 3.1 all depressed, K, BUN, Creat, Gl 151 an was 177 all elevated. 68" and at 169.1 lbs. and IBW = 154+/-10% (139-169 lbs.) and kcal for IBW x 25 = 1750, x 30 = 2100, x 35 to 40 = 8001-2298, protein x .8 to 1.5 = 56 to 105 grams and fluids for weight x 25 to 30 = 1800 to 2300 ml per day. BMI = 25.69 and is overweight and is 110% IBW. Recommendations: 1-Increase fluids as tolerated per MD 2-Add Diabetic to diet plan 3-Add foods high in Fe 4-Add a renal supplement wheneating <75% of meals 5- Add a MVI 6-Add Vitami C 500 mg BID 7-Add ZNSO4 220 mg per day x 14 days
[2019-08-29 08:10] VITALS: BP 156/59; TEMP 98.1
[2019-08-29 20:00] VITALS: BP 133/55; TEMP 99.1
[2019-08-30 08:00] VITALS: BP 128/52; TEMP 97.5
--- NOTE | 2019-08-30 11:07 | NUR ---
0915 PT WAS TAKEN TO THERAPY PER THERAPIST. 1030 PT BROUGHT BACK TO ROOM PER THERAPIST.
[2019-08-30 20:00] VITALS: BP 119/49; TEMP 98.8
[2019-08-31 08:00] VITALS: BP 165/72; TEMP 98.1
--- NOTE | 2019-08-31 16:24 | NUR ---
per patient and his son Mario Garcia. He will be returning to Mario's house upon discharge, address is [address] [place] [address]. He does not have a working phone at present. I faxed order to [facility] [phone] for his hospital bed, FWW, and raised toilet seat per Shahriar in P.T. Pt's son is to make room for the bed this weekend in anticipation for discharge next week. No other needs at this time.
[2019-08-31 20:00] VITALS: BP 139/58; TEMP 98
[2019-09-01 08:00] VITALS: BP 137/57; TEMP 98.2
[2019-09-01 20:00] VITALS: BP 103/52; TEMP 98.7
[2019-09-02 08:00] VITALS: BP 136/56; TEMP 97.6
[2019-09-02 19:34] VITALS: BP 135/68; TEMP 98.7
[2019-09-03 08:12] VITALS: BP 152/71; TEMP 98
[2019-09-03 20:00] VITALS: BP 114/64; TEMP 98.6
[2019-09-04 08:00] VITALS: BP 124/64; TEMP 97.6
--- NOTE | 2019-09-04 12:15 | NUR ---
IN TO REASSESS PT'S PAIN. PT NOTED TO BE RESTING QUIETLY WITH EYES CLOSED. RISE AND FALL OF CHEST NOTED. PT SHOWS NO SIGNS OF PAIN OR DISTRESS.
[2019-09-04 20:00] VITALS: BP 125/61; TEMP 98.3
[2019-09-05 08:11] VITALS: BP 111/54; TEMP 97.6
[2019-09-05 20:00] VITALS: BP 116/51; TEMP 97.6
[2019-09-06 08:06] VITALS: BP 103/94; TEMP 98.4
[2019-09-06 19:47] VITALS: BP 114/45; TEMP 98.5
[2019-09-07 08:00] VITALS: BP 148/58; TEMP 98.5
[2019-09-07 20:00] VITALS: BP 141/48; TEMP 99
--- NOTE | 2019-09-08 06:28 | NUR ---
09/08/2019 0630 AWAKEN EASILY PT TOOK SOME WATER WITH MEDICATION.NO C/O VOICED DURING THE NIGHTN RESTED WELL.CALL LIGHT WITHIN REACH.
[2019-09-08 08:00] VITALS: BP 142/58; TEMP 98.8
--- NOTE | 2019-09-08 09:00 | NUR ---
PATIENT UP IN ROOM DRESSED ASSITED BY PHYSICAL THERAPY. WENT OVER TO PT/OT ROOM FOR EXERCISES.
--- NOTE | 2019-09-08 11:00 | NUR ---
BACK TO ROOM JORDY WELL RECIEVED AM MEDS. STATES "FEELING GOOD". PATIENT TALKING ANBOUT GOING HOME TUESDAY AM.
[2019-09-08 19:50] VITALS: BP 149/54; TEMP 98.9
--- NOTE | 2019-09-09 00:30 | NUR ---
09/09/2019 0025 PT SITTING ON SIDE OF BED AFTER RETURING TO RESTROOM VOIDED X 1 CLEAR YELLOW URINE,MEDICATED PT STATED HE NEEDS SOMETHING TO HELP HIM REST.CC
[2019-09-09 08:00] VITALS: BP 123/54; TEMP 97.6
--- NOTE | 2019-09-09 09:00 | NUR ---
SITTING UP IN BED EATING BREAKFAST. RECIEVED AM MEDS. PT VISITED THIS AM PATIENT UP ASSISTED WITH AMBULATION NO PROBLEMS NOTED GAINING STRENGTH. APPEARS TO BE DOING WELL.
--- NOTE | 2019-09-09 12:30 | NUR ---
UP AMBULATED HALLWAYS WITH PT JORDY WELL APPEARS TO BE DOING WELL. BACK TO ROOM FOR LUNCH.
--- NOTE | 2019-09-09 16:41 | NUR ---
UP IN [place] AMBULATED TO NURSES STATION AND BACK TO ROOM. JORDY WELL.
[2019-09-09 20:00] VITALS: BP 146/59; TEMP 97.6
--- NOTE | 2019-09-10 02:24 | NUR ---
09/10/2019 0220 RESTING QUEITLY WITH EYES CLOSED RESP EVEN NONLABORED NAD NOTED.CALL LIGHT WITHIN REACH.CC
--- NOTE | 2019-09-10 04:38 | NUR ---
09/10/2019 PT SITTING UP HIGH VALDES'S WATCHING T.Natalia MCARTHUR NOTED.CALL LIGHT WITHIN REACH.CC
--- NOTE | 2019-09-10 06:46 | NUR ---
09/10/2019 0645 RESTING EYES CLOSED EASILY AROUSES NAD NOTED.CALL LIGHT WITHIN REACH.CC
[2019-09-10 08:00] VITALS: BP 109/50; TEMP 97.6
[2019-09-10] MEDS ORDERED: BLOOMIS59 PO (10:54)
--- NOTE | 2019-09-10 13:06 | NUR ---
1250 - ALL DISCHARGE INSTRUCTIONS AND ORDERS GIVEN TO PT AND PT'S SON BAKARI. BOTH VERBALZIED UNDERSTANDING. INFORM SENT TO [facility] PER LISSETH IN UR. [facility] WILL CONTACT PT TO DATE AND TIME. ALL DISCHARGE MEDS EXPLAINED TO PT AND PT'S SON AND PRINTED LIST GIVEN TO PT AND SON. EXPLAINED TO BOTH IF PT DID NOT HAVE MEDS AT HOME TO CALL ME BACK AT NURSES STATION AND MEDS COULD BE CALLED INTO PHARM. BOTH VERBALZIED UNDERSTANIDNG. PT'S SON BAKARI STATED THAT HIS WOULD CHECK PT'S MEDS AND MAKE SURE PT HAD CORRECT MEDS. PT LEFT IN WC AND WITH SON. SON TAKING PT HOME. NO DISTRESS NOTED
== END 2019-09-10 13:00 | disposition home or self-care (01) | DRG 555 ==
LOC: MED/SURG 09:30
PROVIDERS: Internal Medicine; ADMIT Internal Medicine Endocrinology, Diabetes & Metabolism
DX: M62.81 Muscle weakness (generalized) (principal); S72.114A Nondisplaced fracture of greater trochanter of right femur, initial encounter for closed fracture; N17.8 Other acute kidney failure; R62.7 Adult failure to thrive; Z91.81 History of falling; Z86.73 Personal history of transient ischemic attack (TIA), and cerebral infarction without residual deficits; I25.10 Atherosclerotic heart disease of native coronary artery without angina pectoris; Z95.1 Presence of aortocoronary bypass graft; N40.0 Benign prostatic hyperplasia without lower urinary tract symptoms; E03.8 Other specified hypothyroidism; K21.9 Gastro-esophageal reflux disease without esophagitis; E11.40 Type 2 diabetes mellitus with diabetic neuropathy, unspecified; D50.8 Other iron deficiency anemias; E11.22 Type 2 diabetes mellitus with diabetic chronic kidney disease; I12.9 Hypertensive chronic kidney disease with stage 1 through stage 4 chronic kidney disease, or unspecified chronic kidney disease; N18.3 Chronic kidney disease, stage 3 (moderate)
CPT/HCPCS: 80048; 80053; 81000; 85027; 87081; J1650; J1815

== ENCOUNTER 2019-09-12 17:57 | Emergency (ER) | payer OTHER ==
[~2019-09-12] VITALS: Ht 172.7 cm; Wt 76.2 kg
[~2019-09-12 17:57] MED LIST changes: +ALLEGRA ALRG180 M1 PO; +ALLO100T22 PO; +BLOOMIS59 PO; +DOK100 MG PO; +EUTHYROX88 MCG PO; +FLUTMIS6 PO; +FURO40TA93 PO; +KLOR-CON M2020 MEQ PO; +MELATONIN3 M1 PO; +MELOXICAM7.5 MG PO; +MIRALAX3350 N1 PO; +NYSTATIN100000 UNI PO; +OMEP40CA PO; +OXYB5TAB56 PO; +TRAMADOL HYDROC50 MG PO; +TYLENOL325 MG PO
[2019-09-12 21:20] VITALS: BP 151/73; TEMP 99.4
== END 2019-09-12 21:20 | disposition home or self-care (01) ==
LOC: ED 17:57
DX: S09.8XXA Other specified injuries of head, initial encounter (principal); S72.8X1G Other fracture of right femur, subsequent encounter for closed fracture with delayed healing; M25.551 Pain in right hip; W18.39XA Other fall on same level, initial encounter; Y92.89 Other specified places as the place of occurrence of the external cause
CPT/HCPCS: 90471; 90715; 99284

== ENCOUNTER 2020-01-08 10:02 | Inpatient (IN) | payer OTHER ==
[~2020-01-08] VITALS: Ht 172.7 cm; Wt 72.8 kg
[2020-01-08] VITALS (14 sets, daily range): BP systolic 139–171; BP diastolic 59–83; TEMP 98.5–100.1; Ht 172.7 cm; Wt 72.8 kg
[2020-01-08 11:14] LABS: PLATELET COUNT 143 K/uL (142-355)
[2020-01-08 11:17] LABS: POTASSIUM 4.4 mmol/L (3.6-5.2); SODIUM 134 mmol/L (136-145)
[2020-01-09] VITALS (7 sets, daily range): BP systolic 107–137; BP diastolic 51–68; TEMP 98–100.9
[2020-01-09 05:33] LABS: PLATELET COUNT 137 K/uL (142-355)
[2020-01-09 05:51] LABS: POTASSIUM 3.8 mmol/L (3.6-5.2)
[2020-01-09] MEDS ORDERED: TESSALON PER100 MG PO (13:15)
[2020-01-09] MEDS ORDERED: CARV6.25 PO (13:16)
[2020-01-09] MEDS ORDERED: DICL1GEL2 TOP (13:18)
[2020-01-09] MEDS ORDERED: HYDROCODONE BIT1 TA1 PO (13:20)
--- NOTE | 2020-01-09 13:39 | NUR ---
PT C/O NECK AND SHOULDER PAIN- 50MG TRAMADOL ADMIN PO AT THIS TIME.
[2020-01-10 03:48] VITALS: BP 112/59; TEMP 98.1
[2020-01-10 05:21] LABS: PLATELET COUNT 143 K/uL (142-355)
[2020-01-10 08:00] VITALS: BP 159/72; TEMP 97.9
--- NOTE | 2020-01-10 11:50 | NUR ---
PT OTBS 405 WITH BEDSIDE RECHECK 410- PER PROTOCOL, ORDERS ENTERED FOR RANDOM GLUCOSE DRAW TO VERIFY. Gertrudis SANTILLAN RN CN NOTIFIED, ALSO NOTIFIED LAB OF ORDER.
[2020-01-10 12:00] VITALS: BP 159/77; TEMP 97.9
[2020-01-10 16:00] VITALS: BP 146/69; TEMP 97.9
--- NOTE | 2020-01-10 16:05 | NUR ---
PT OTBS 410- NOTIFIED DR. BRAY. V/O GIVEN TO ADMIN 15 UNITS NOVOLOG NOW AFTER STAT RANDOM BLOOD GLUCOSE.
[2020-01-10 19:54] VITALS: BP 139/54; TEMP 98.6
[2020-01-11] VITALS: BP 141/66; TEMP 98.1
[2020-01-11 04:00] VITALS: BP 146/71; TEMP 98.3
[2020-01-11 08:24] VITALS: BP 139/64; TEMP 96.2
--- NOTE | 2020-01-11 10:00 | NUR ---
Pt. 02 SAT 88 TO 90. 02 STARTED A 2L PER MIN. Pt. C/O FEELING DOWN DUE SISTERS ONE MONTH AGO AND EX- . SPOKE WITH PtMatheus GILLESPIE OUT PATIENT THERSPY.
[2020-01-11 12:00] VITALS: BP 135/62; TEMP 97.6
--- NOTE | 2020-01-11 13:52 | NUR ---
TRIED CALLING PTS SON AND DAIUGHTER IN LAW [employer] [phone], THE PHONE SAYS IT HAS RESTRICTIONS AND CANNOT RECEIVE CALLS. I ALSO TRIED TEXTING THE ABOVE NUMBER. I WAS ABLE TO REACH THE PATIENTS GRANDDAUGHTER, SOFIA LEE, CELL, WORK. SHE IS THE DAUGHTER OF EMILY DAVIS. SHE SAID SHE WAS NOT ABLE TO REACH THEM AND COULD NOT FIND THEM. SHE STATED WHEN SHE GOT OFF AT 6PM THAT SHE WILL TRY TO LOCATE THEM AND PTS GLASSES AND CLEAN CLOTHES. IF SHE IS NOT ABLE TO REACH HER PARENTS SHE WILL TRY TO BRING THE ITEMS FOR THE PATIENT. i ALSO TOLD HER DR. BROWN RECOMMENDED EMILY AND ANYONE ELSE THAT HAD BEEN EXPOSED TO PATIENT TO CALL THE HEALTH DEPT AND GET OUTPATIENT APPOINTMENT FOR COVID TESTING.
[2020-01-11 16:00] VITALS: BP 137/67; TEMP 98.7
--- NOTE | 2020-01-11 17:54 | NUR ---
RECEIVED A CRITICAL GLUCOSE RESULTS FROM LAB AT THIS TIME.
[2020-01-11 20:00] VITALS: BP 146/65; TEMP 97.9
--- NOTE | 2020-01-11 20:26 | NUR ---
ACCU CHECK BS NOTED TO BE 479. HOSPITALIST NOTIFIED. STAT GLUCOSE ORDERED AND AWAITING RESULTS FOR FURTHER ORDERS.
--- NOTE | 2020-01-11 23:01 | NUR ---
2045 LAB RETURNED CALL WITH BS 432. NOVOLOG 5 UNITS GIVEN PER SLIDING SCALE. 2309 ACCU CHECK BS 368.
[2020-01-12] VITALS: BP 143/69; TEMP 98.2
[2020-01-12 04:00] VITALS: BP 147/67; TEMP 98
[2020-01-12 08:00] VITALS: BP 146/67; TEMP 98.3
[2020-01-12 12:00] VITALS: BP 157/67; TEMP 98.3
[2020-01-12 16:00] VITALS: BP 155/58; TEMP 98.2
[2020-01-12 20:00] VITALS: BP 145/65; TEMP 98.7
[2020-01-13] VITALS: BP 141/64; TEMP 99.2
--- NOTE | 2020-01-13 01:56 | NUR ---
01/12/20 Brigida LINDSAY BS 427. LAB NOTIFIED FOR VERIFICATION.
--- NOTE | 2020-01-13 02:10 | NUR ---
01/12/20 2220 LAB UNABLE TO VERIFY GLUCOSE DUE TO EMERGENCY IN ER. UNABLE TO GET IN TOUCH WITH HOSPITALIST. CHARGE NURSE MAYUR PASCUAL RN AWARE OF BS AND INFORMED THIS SALES EXPERT HOME THEATER TO GO AHEAD AND GIVE 10 UNITS OF NOVOLOG PER SLIDING SCALE. SAME DONE. WILL RECHECK IN ONE HOUR. BS AT THIS TIME IS 403.
--- NOTE | 2020-01-13 02:14 | NUR ---
01/13/20 0020 BS 385. PT RESTING IN BED WITH NO C/O AT THIS TIME. EASILY AROUSED. NO S/S OF DISTRESS. SKIN WARM AND DRY. NO SHORTNESS OF BREATH OBSERVED. O2 ON VIA NC AT 2 L/M. NO COUGH NOTED. HOB ELEVATED. CALL LIGHT IN EASY REACH. WILL CONT TO OBSERVE.
[2020-01-13 04:00] VITALS: BP 132/58; TEMP 98.8
[2020-01-13 08:00] VITALS: BP 161/64; TEMP 98.2
[2020-01-13 12:00] VITALS: BP 145/63; TEMP 98.7
[2020-01-13 16:00] VITALS: BP 132/60; TEMP 98.5
[2020-01-13 20:00] VITALS: BP 149/71; TEMP 98.3
[2020-01-14] VITALS (8 sets, daily range): BP systolic 133–164; BP diastolic 60–73; TEMP 97.9–100.5
--- NOTE | 2020-01-14 08:30 | NUR ---
STANDBY ASSIST FOR PT TO TRANSFER TO BSC FOR MODERATE, LOOSE BM. PT NOTICEABLY WEAKER THAN ON ADMISSION BUT IS STILL ABLE TO TRANSFER WITH STANDBY ASSIST X1. PT UNABLE TO ASSIST WITH BEDBATH SO TOTAL CARE PERFORMED. LINENS SOILED D/T EPISODE OF URINARY INCONTINENCE/ BED CHANGED DONE. PT JORDY ACTIVITY FAIR.
--- NOTE | 2020-01-14 10:57 | NUR ---
DR. BRAY NOTIFIED OF TEMP OF 100.5- ADVISED TO ADMIN TYLENOL. ALSO NOTIFIED HER OF INCREASED COUGH AND WEAKNESS.
[2020-01-14 11:20] LABS: PLATELET COUNT 263 K/uL (142-355)
[2020-01-14 11:31] LABS: POTASSIUM 4.7 mmol/L (3.6-5.2)
--- NOTE | 2020-01-14 13:05 | NUR ---
URINE SPECIMEN COLLECTED AND TAKEN TO LAB.
--- NOTE | 2020-01-15 02:42 | NUR ---
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 I LISTEND TO HIS CONCERNS AND ASSURED HIM THAT HAVEING A DNR IN PLACE CERTAINLY DOESNT MEAN WE WONT TREAT HIM. ALSO I WAS ABLE TO SHARE HOW I HAD COVID-19 AND THANKFULLY I SURVIED. THE PATIENT LOOKED MORE RELIEVED AND THANKED ME FOR MY TIME. WILL CONTINUE TO MONITOR
[2020-01-15 04:00] VITALS: BP 146/77; TEMP 98.3
--- NOTE | 2020-01-15 07:32 | NUR ---
PT SITTING UP IN BED, A/O X3, DENIES PAIN OR DISCOMFORT, DENIES SOB, O2 IN PLACE A 2LPM NC, REPORTS IMPROVED COUGH, REPORTS INCREASED STRENGTH, ACCEPTING OF SUGGESTION TO GET INTO RECLINER TODAY. LUNG SOUNDS DIMINISHED BUT CLEAR, 20G IV IN RT AND LT AC PATENT. PRE CERTIFICATION SPECIALIST <3 BILATERALLY. BOWEL SOUNDS PRESENT AND ACTIVE X4. CALL LIGHT IN EASY REACH.
[2020-01-15 08:00] VITALS: BP 136/66; TEMP 97.9
--- NOTE | 2020-01-15 08:19 | NUR ---
7 UNITS NOVOLOG ADMIN SQ FOR BLOOD GLUCOSE 253.
--- NOTE | 2020-01-15 10:28 | NUR ---
ASSISTED PT UP TO BSC FOR LARGE, LOOSE BM. ASSISTED PT WITH PERICARE AND STANDBY FOR TRANSFERS BACK TO BED. PT ASKED TO SIT UP ON BEDSIDE AND FOR ASSIST WITH CLEANING HIS DENTURES AND WITH A SHAVE. PT STATES HE IS TOO WEAK TO PERFOR ADLS PER SELF AND ASKS FOR ASSIST, WHICH WAS PROVIDED. ASSISTED PT BACK TO BED TO REMAIN IN A HIGH VALDES'S POSITION ON PT'S REQUEST. PT APPEARS FATIGUED AFTER ACTIVITIES BUT IS NOT SOB OR IN ANY DISTRESS. O2 REMAINS IN PLACE AT 2LPM VIA NC. CALL LIGHT IN EASY REACH. WILL CONTINUE TO MONITOR.
--- NOTE | 2020-01-15 10:48 | NUR ---
DR. BRAY NOTIFIED OF PT'S REQUEST FOR DEPRESSION MED.
[2020-01-15 12:00] VITALS: BP 141/66; TEMP 98.3
--- NOTE | 2020-01-15 12:30 | NUR ---
7 UNITS NOVOLOG ADMIN SQ FOR BLOOD GLUCOSE 263.
--- NOTE | 2020-01-15 13:10 | NUR ---
PT DESATS TO 88-89% 2LPM NC PER TECH AND PER PT. DR. BRAY AWARE, V/O GIVEN TO INCREASE O2 TO 3LPM. DEVELOPMENT ASSOCIATE TO ROOM TO ASSESS PT- PT SITTING ON SIDE OF BED, REPORTS BEING DIZZY- O2 SATS VERIFIED AT 88-89%. ASSISTED PT TO LAY BACK DOWN. ENCOURAGED PT TO PRONE BUT HE REFUSED, STATING HE COULDN'T LAY IN THAT POSITION BC IT MADE HIM FEEL LIKE HE WAS BEING SMOTHERED. PT ACCEPTS RT LATERAL POSITION, SATS QUICKLY RETURNED TO 94-95% ON 3LPM NC. PT COMFORTABLE AND AGREES TO REMAIN ON RT SIDE. DR. BRAY NOTIFIED OF IMPROVED SAT.
--- NOTE | 2020-01-15 13:19 | NUR ---
V/O GIVEN TO PLACE PT ON CONTINUOUS PULSE OX. UNIT #5 PLACED ON PT AT THIS TIME.
[2020-01-15 16:00] VITALS: BP 147/77; TEMP 97.7
[2020-01-15 20:01] VITALS: BP 147/60; TEMP 98.7
[2020-01-15 23:47] VITALS: BP 159/60; TEMP 98.1
[2020-01-16 04:00] VITALS: BP 151/66; TEMP 98.4
[2020-01-16 06:13] LABS: PLATELET COUNT 311 K/uL (142-355)
[2020-01-16 08:00] VITALS: BP 161/67; TEMP 97.9
--- NOTE | 2020-01-16 10:00 | NUR ---
ASSISTED PT ONTO BSC. SPONGE BATH GIVEN. PT DESATS TO MID 70'S ON 4LPM. PULSE OX PROBE MOVED TO ALTERNATE FINGER. RESULTS SAME. O2 INCREASED TO 5LPM NC AND PT RETURNED TO BED AND PLACE ON RT SIDE IN [place], O2 SATS IMPROVED TO 95%. ATTEMPTED TO WEAN PT BACK TO 4LPM BUT SATS DROPPED BACK TO 90-91%. O2 LEFT AT 5LPM.
[2020-01-16 12:00] VITALS: BP 169/77; TEMP 97.6
--- NOTE | 2020-01-16 12:08 | NUR ---
ASSISTED PT TO REPOSITION IN BED FOR LUNCH. PT NOTICEABLY SOB, SATS DECREASED FROM 93-94 TO 85-89 ON 5LPM NC. PT ADVISED TO CALL STAFF WITH WORSENING SOB OR CONDITION CHANGE. NOTIFIED DR. BRAY OF CONDITION CHANGE.
--- NOTE | 2020-01-16 13:45 | NUR ---
PT C/O NAUSEA AND LEG CRAMPS. UPDATED DR. BRAY OF THIS, V/O GIVEN TO ADMIN ZOFRAN 4MG IV AND START REMERON AT HS FOR APPETITE AND DEPRESSION. MEDS ADMIN.
--- NOTE | 2020-01-16 14:37 | NUR ---
V/O GIVEN TO ORDER GLUCERNA WITH MEALS.
--- NOTE | 2020-01-16 14:37 | NUR ---
PT ON L SIDE, SATS 98-100% 5LPM. O2 DECREASED TO 4LPM VIA NC, SATS DROPPED TO 95-97% NC. PT REFUSED THE REST OF HIS LUNCH.
[2020-01-16 16:00] VITALS: BP 154/65; TEMP 97.9
[2020-01-16 20:00] VITALS: BP 155/68; TEMP 97.7
[2020-01-17] VITALS: BP 178/69; TEMP 98.1
[2020-01-17 04:00] VITALS: BP 150/55; TEMP 98
[2020-01-17 05:33] LABS: POTASSIUM 4.6 mmol/L (3.6-5.2)
[2020-01-17 08:00] VITALS: BP 162/61; TEMP 98.1
[2020-01-17 12:00] VITALS: BP 189/95; TEMP 97.9
[2020-01-17 16:00] VITALS: BP 144/66; TEMP 98.6
[2020-01-17 20:00] VITALS: BP 144/62; TEMP 98.4
[2020-01-18] VITALS (9 sets, daily range): BP systolic 145–199; BP diastolic 54–98; TEMP 97.8–98.6
[2020-01-18 05:06] LABS: POTASSIUM 5.5 mmol/L (3.6-5.2)
--- NOTE | 2020-01-18 08:00 | NUR ---
PT RESTING COMFORTABLY, SATS 89-91% ON 2LPM NC. ADJUSTED PULSE OX PROBE BUT READING STILL LOW 90'S. O2 INCRASED TO 3LPM NC. PT DENIES PAIN, STATES HE IS JUST "WEAK". POSITIONED PT TO RT LATERAL POSITION, LUNGS CLEAR UPPER LOBES, VERY DIMINISHED IN BASES BILATERALLY. 22G SALINE LOCK IN PLACE TO MARIIA, FLUSHED W/OUT DIFFICULTY. BOWEL SOUNDS HYPOACTIVE. BLE NOTED TO FEET/ANKLES. PT ENCOURAGED TO REMAIN ON RT SIDE TO IMPROVE BREATHING.
--- NOTE | 2020-01-18 10:00 | NUR ---
TRAY TABLE CLEARED FROM BREAKFAST- POSITIONED FROM HIGH FOWLERS TO L LATERAL POSITION. EMPTIED 150CC RAEGAN URINE FROM URINAL. O2 SATS 92-93% 3LPM.
--- NOTE | 2020-01-18 12:37 | NUR ---
PT IN WITH PATIENT.PER PT, PATIENT NOT TOLERATING ACTIVITY VERY WELL TODAY, TENDS TO DESAT INTO MID 60-75% ON 3LPM. PT STAFF REPORTS SITTING WITH PT WHILE HE RECOVERED TO LOW 90'S BEFORE LEAVING HIM, AND VERBALIZED CONCERN THAT PATIENT MAY BENEFIT FROM BEING PLACED IN ICU.
--- NOTE | 2020-01-18 14:20 | NUR ---
SPOKE TO DR. BRAY ABOUT PT'S INCREASED PHYSICAL NEEDS AND REQUESTED POSS PLACEMENT IN ICU FOR MORE ADVANCED MONITERING- V/O GIVEN TO MOVE PT TO ICU BED. UPDATED LUKE IN ICU OF CHANGES AND GAVE REPORT.
--- NOTE | 2020-01-18 14:49 | NUR ---
PT UPDATED AND ACCEPTING OF STATUS CHANGE. PT AND BELONGINGS TAKEN TO ICU BED 1.
--- NOTE | 2020-01-18 16:53 | NUR ---
RECEIVED PT FROM [facility] TO ICU BED 1 @ 1450 VIA BED. NO ACUTE DISTRESS NOTED AT PRSESENT @ @2LBNC. BID CLERK ATTACHED. 18 AND 16 IRANIAN MASON INSERTION ATTEMPTED WITHOUT SUCCESS. UNABLE TO ADVANCE MASON. 14FRENCH COUDE' CATHETER INSERTED WITHOUT DIFFICULTY. TOLERATED WELL. 400CC CLEAR, YELLOW URINE DRAINING WITHOUT DIFFICULTY TO MASON BAG. STAT LOCK PLACED. PT SON, BAKARI UPDATED AND AWARE OF PT TRANSFER TO ICU.
--- NOTE | 2020-01-18 18:22 | NUR ---
1500 PT AWAKE AND ALERT. RESP EVEN AND NON LABORED. FINE CRACKLES NOTED LEFT LOWER LOBE... BS DIMINISHED UPPER LOBES. PT PLACED ON MONITOR AND RE-CONNECTED TO NC @ 3L/NC. SATS NOTED TO BE 95% AT THIS TIME. WILL CON'T TO MONITOR.
--- NOTE | 2020-01-18 20:00 | NUR ---
PT ATE 1/4 OF HIS SUPPER. RESPEVEN AND NONLABORED. BREATHING SHALLOW AND COUGHS. PT ASKED ABOUT WATCHING TV. CM WITH PACER RHYTHM. TOLERATED ANTI VIRAL MEDICATION INFUSION WITHOUT ANY SIDE EFFECTS NOTED. ISABELLA TO BSC. SR UP. BEDSIDE TABLE IN EASY REACH.
--- NOTE | 2020-01-18 21:00 | NUR ---
BLOOD SUGAR IS 101. INSULIN HELD.
--- NOTE | 2020-01-18 21:00 | NUR ---
LOVENOX SQ GIVEN TO ABDOMEN ORDERED. PT TOLERATED WITH NO COMPLAINTS. BP IS 188/86 HYDRALAZINE 10 MG IVSP GIVEN. 21:25PM PT COMPLAINING OF HEADACHE, PRN TYLENOL 650 MG GIVEN TO PATIENT. PT TOOK REMERON TONIGHT ORDERED FOR DEPRESSION AND FOR REST. PT WAS ALSO COMPLAINING OF FEELING COLD.EXTRA BLANKET WAS PLACED ON BED, BLANKET COVER FROM HIS FEET TO SHOULDERS. PT STATED"THAT FEELS MUCH BETTER". 21:35PM BP REASSESSED 150/54 NOW.
[2020-01-19] VITALS (18 sets, daily range): BP systolic 108–172; BP diastolic 46–89; TEMP 98.1–99.1
--- NOTE | 2020-01-19 04:05 | NUR ---
PT IS AWAKE. TEMPERATURE IS 98.9 ORAL. PT STATES HE HAS SLEPT GOOD TONIGHT. WATCHING TELEVISION. NO COMPLAINTS VOICED.
[2020-01-19 05:52] LABS: POTASSIUM 4.5 mmol/L (3.6-5.2)
--- NOTE | 2020-01-19 09:05 | NUR ---
0900 PT NOTED TO CONSTANTLY CLEAR THROAT AND COUGH WHILE EATING. ORDER FOR ST EVAL OBTAINED AND RACHEL BERKOWITZ INFORMED VIA PHONE. WILL CON'T TO MONITOR. PT DIET NOTED TO HAVE CHOP MEATS ALREADY AT THIS TIME
--- NOTE | 2020-01-19 15:13 | NUR ---
1500 DR BROWN AT BS AT THIS TIME.
[2020-01-20] VITALS (16 sets, daily range): BP systolic 110–169; BP diastolic 60–78; TEMP 97.8–98.6
--- NOTE | 2020-01-20 00:48 | NUR ---
PT AWAKE AND WAS SERVED ERNESTO CRACKERS WHICH WERE BROKE IN TO SMALL PIECES AND SERVED FRESH COFFEE.
--- NOTE | 2020-01-20 02:30 | NUR ---
LAB IN TO DRAW BLOOD. UNSUCCESSFUL.
[2020-01-20 11:24] LABS: POTASSIUM 4.2 mmol/L (3.6-5.2)
--- NOTE | 2020-01-20 12:19 | NUR ---
1030 20 G IV SALINE LOCK INSERTED TO LEFT AC. X3 ATTEMPTS. PT TOLERATED WELL. SALINE LOCK FLUSHED, NO REDNESS, EDEMA, TENDERNESS NOTED.
--- NOTE | 2020-01-20 13:07 | NUR ---
0930 NOTED EDEMA TO RIGHT ARM FROM SHOULDER TO HAND. SL NOTED TO BE INTACT TO RT UPPER ARM AT THIS TIME. SITE DC'D AND ROUTINE SITE CARE GIVEN. PT DENIES ANY PAIN TO RT UPPER EXT
--- NOTE | 2020-01-20 19:57 | NUR ---
PT WAS ASSISTED TO BSC.
--- NOTE | 2020-01-20 20:29 | NUR ---
PT HAD LARGE FORMED STOOL. ASSISTED PT WITH CLEANING. PT BECOMES VERY SHORT OF BREATH WITH THIS EXERTION. POSITIONED PT IN BED. O2 SATS DROP QUICKLY IN THE 70'S. O2 ON AT 6 L NC. NOT RECOVERING QUICKLY. NRB PLACED ON PT. 100 PERCENT.
--- NOTE | 2020-01-20 20:45 | NUR ---
PT BREATHING MUCH BETTER WITH NRB AT 100 PERCENT. O2 SATS ARE 96 PERCENT. 21:00PMM MEDICATIONS GIVEN. PT WAS GIVEN LOVENOX INJECTION ORDERED TO ABDOMEN. PT NOW CHANGED TO NC AT 6L. RESP EVEN AND NONLABORED. POSITIONED IN BED FOR COMFORT. PATIENT WAS SERVED SNACK OF PEACHES AND SUGAR FREE COOKIES. PT STATES THAT HE IS FEELING BETTER. SR UP. BEDSIDE TABLE IN EASY REACH.
--- NOTE | 2020-01-20 23:44 | NUR ---
PT AWAKE AND DRINKING PO FLUIDS -WATER.
[2020-01-21] VITALS (21 sets, daily range): BP systolic 130–171; BP diastolic 58–89; TEMP 97.1–98.6
--- NOTE | 2020-01-21 03:44 | NUR ---
PT CONTINUES TO REST QUIETLY. O2 SATS ARE 92 PERCENT TO 95 PERCENT.
--- NOTE | 2020-01-21 07:00 | NUR ---
PT FOUND TO BE RESTING WITH EYES CLOSED; NADN; NO NEEDS OR WANTS EXPRESSED AT THIS TIME; PT AREA CLEANED AND LINENS APPEAR TO BE CLEAN AT THIS TIME
--- NOTE | 2020-01-21 15:00 | NUR ---
PHYSICAL THERAPY AT PT BEDSIDE FOR IN BED EXERCISES; PT TOLERATED WELL
--- NOTE | 2020-01-21 19:45 | NUR ---
PT AWAKE SITTING UP IN BED WITH NO ACUTE DISTRESS NOTED, RESP RATE NONLABORED, O2 AT 6LPM VIA NC WITH SAT OF 94%, BS+, LUNGS CLEAR TO AUSCULTATION, IV LOCK INTACT TO L AC WITH NO PROBLEMS NOTED TO SITE(FLUSHES EASILY WITH 10ML NS), SKIN WARM AND DRY, RADIAL AND PEDAL PULSES INTACT, DENIES ANY NEEDS OR PAIN AT THIS TIME, WILL MONITOR CLOSELY, RAILS UP, BED IN LOW POSITION, ENCOURAGED TO CALL NEEDED.
--- NOTE | 2020-01-21 21:30 | NUR ---
2109 LAB REPORTED BLOOD SUGAR OF 567. SPOKE WITH DR. Jen TAYLOR AND GAVE HIM LAB RESULTS. NEW ORDER TO GIVE 10 UNITS REGULAR INSULIN SQ X 1 NOW AND TO GIVE 1 LITER BOLUS OF NS OVER [address] R[address] Jen TAYLOR/DYLAN GAINES RN.
[2020-01-22] VITALS (14 sets, daily range): BP systolic 136–175; BP diastolic 57–86; TEMP 97.7–98.2
--- NOTE | 2020-01-22 00:06 | NUR ---
PT RESTING QUIETLY IN BED WITH EYES CLOSED, NO S/S OF PAIN OR DISTRESS NOTED, IV INTACT, MASON PATENT, RESP RATE NONLABORED, ON REGISTERED NURSE WITH RATE IN 60s, O2 SAT 93% WITH O2 AT 6LPM VIA NC, WILL MONITOR CLOSELY, RAILS UP, BED IN LOW POSITION.
--- NOTE | 2020-01-22 01:20 | NUR ---
FSBS 431, ORDERED STAT GLUCOSE PER LAB AND WILL GIVE SSI PER ORDERS.
--- NOTE | 2020-01-22 02:25 | NUR ---
BLOOD SUGAR PER LAB IS 443, REPORTED TO DR. Jen TAYLOR AT THIS TIME, GIVE SSI 10 UNITS PER EXISTING ORDER, WILL MONITOR.
--- NOTE | 2020-01-22 08:25 | NUR ---
LOIDA RESPIRATORY THERAPIST, AT BEDSIDE AND DECREASED PATIENT'S OXYGEN TO 5LPM VIA NASAL CANNULA. PATIENT TOLERATING WELL..
--- NOTE | 2020-01-22 14:02 | NUR ---
SPEECH THERAPY AT BEDSIDE WITH PATIENT. PATIENT TOLERATING WELL.
--- NOTE | 2020-01-22 15:15 | NUR ---
DR. BROWN AT BEDSIDE WITH PATIENT.
--- NOTE | 2020-01-22 15:30 | NUR ---
MD AT PT BEDSIDE FOR DAILY ROUNDS AT THIS TIME
--- NOTE | 2020-01-22 16:00 | NUR ---
PT MASON CLAMPED TO PREPARE FOR MASON D/C
--- NOTE | 2020-01-22 16:23 | NUR ---
LAB AT BEDSIDE FOR BLOOD DRAW FOR STAT GLUCOSE
--- NOTE | 2020-01-22 16:50 | NUR ---
RECEIVED NEW ORDERS TO CHANGE PATIENT'S ADMISSION STATUS FROM ICU TO PCU AND MOVE PATIENT FROM ICU TO ROOM 1129, NOTED AND CARRIED OUT.
--- NOTE | 2020-01-22 19:05 | NUR ---
PATIENT TRANSFERRED FROM ICU TO PCU ROOM 1129 VIA TERRY CHAIR WITHOUT DIFFICULTY. PATIENT DENIES ANY NEEDS OR C/O AT THIS TIME. PATIENT'S CLOTHES AND SHOES WERE PLACED IN NIGHTSTAND AND ADVISED PATIENT OF SAME. NO S/SX OF DISTRESS NOTED AT THIS TIME. PATIENT PLACED ON NC 4LPM HUMIDIFIED OXYGEN. CALL LIGHT PLACED IN PATIENT'S CARE IN TERRY CHAIR AND INSTRUCTED PATIENT ON HOW TO USE, PT V/O UNDERSTANDING. PROVIDED PATIENT WITH TV REMOTE. MASON REMAINS CLAMPED FOR BLADDER TRAINING TO D/C MASON. PATIENT INSTRUCTED TO USE URINAL AT BEDSIDE WHEN HE FEELS THE URGE TO URINATE. PATIENT V/O UNDERSTANDING AND DENIES ANY NEEDS OR C/O AT THIS TIME. REPORT GIVEN TO KYLE HOUSTON LPN. RECEIVING NURSE DENIES ANY QUESTIONS AT THIS TIME.
--- NOTE | 2020-01-22 22:48 | NUR ---
PLACED PT ON NONREBREATHER MASK DUE TO BEING IN RESP. DISTRESS. SPO2 ON N/C @ 6 LPM IS 78% ATTEMPTED V/M @ 50% FIO2, SPO2 REACHED 84% AFTER PALCEMENT OF NRB @ 100% FIO2 SPO2 REACHED 94% NURSE KYLE JIMENEZ LPN
[2020-01-23] VITALS: BP 144/68; TEMP 98.1
[2020-01-23 04:00] VITALS: BP 175/79; TEMP 97.3
[2020-01-23 05:21] LABS: PLATELET COUNT 285 K/uL (142-355)
[2020-01-23 05:39] LABS: POTASSIUM 5.2 mmol/L (3.6-5.2)
[2020-01-23 08:00] VITALS: BP 192/91; TEMP 97.7
--- NOTE | 2020-01-23 10:02 | NUR ---
PATIENT STATED HE IS DOING THE ACEPELLA ON HIS OWN.
[2020-01-23 12:00] VITALS: BP 141/65; TEMP 97.9
--- NOTE | 2020-01-23 13:25 | NUR ---
swabbed for covid-19 tolerated well
[2020-01-23 20:00] VITALS: BP 158/71; TEMP 99.3
[2020-01-24 03:59] VITALS: BP 142/69; TEMP 98.3
[2020-01-24 08:00] VITALS: BP 176/78; TEMP 97.7
[2020-01-24 20:00] VITALS: BP 138/52; TEMP 99.1
[2020-01-25 00:10] VITALS: BP 95/56; TEMP 98.9
[2020-01-25 04:01] VITALS: BP 150/73; TEMP 98.6
--- NOTE | 2020-01-25 06:14 | NUR ---
01/25/20 0610 RESTING IN BED WITH EYES CLOSED RESP EVEN NONLABORED NAD NOTED.CC
[2020-01-25 08:00] VITALS: BP 150/69; TEMP 98.2
[2020-01-25 12:00] VITALS: BP 153/70; TEMP 98
--- NOTE | 2020-01-25 12:51 | NUR ---
I SPOKE WITH THE PATIENT WHO IS NOW REFUSING TO GO TO A PRISON FACILITY. I HAVE ATTEMPTED TO CONTACT HIS SON CHRISTIAN AT [phone] MULTIPLE TIMES TODAY. I ALSO ATTEMPTED TO MAKE CONTACT WITH THE GRAND DAUGHTER OF THE PATIENT LINDA WITH NO SUCCESS. I WILL SPEAK WITH THE DOCTOR AND IF NO CONTACT IS MADE WITH THE FAMILY THEN WILL NOTIFY APS.
--- NOTE | 2020-01-25 14:53 | NUR ---
WAS ABLE TO MAKE CONTACT WITH SON BAKARI. AFTER DISCUSSING OPITIONS WITH HIM AND THE PATIENT THEY HAVE DECIDED FOR THE PATIENT TO GO HOME ON HOSPICE WHEN READY FOR DISCHARGE.
[2020-01-25 20:00] VITALS: BP 120/43; TEMP 98.9
--- NOTE | 2020-01-25 20:31 | NUR ---
ACCUCHEK SHOW HI READING. LAB NOTIFIED FOR STAT DRAW. WILL FOLLOW UP.
[2020-01-26] VITALS: BP 123/51; TEMP 98.6
[2020-01-26 04:00] LABS: PLATELET COUNT 185 K/uL (142-355)
[2020-01-26 04:12] LABS: POTASSIUM 4.6 mmol/L (3.6-5.2)
--- NOTE | 2020-01-26 07:49 | NUR ---
LAB STAT DRAW RESULTS FOR 01/25/20 AT 2114 SHOWED BS 556. HOSPITALIST NOTIFIED PER MAYUR PASCUAL RN WITH NEW ORDERS TO GIVE NOVOLOG 12U NOW AND RECHECK IN TWO HOURS. RECHECKED LATER AND BS SHOWED 336. PT RESTED THROUGH THE NIGHT WITH NO S/S OF DISTRESS. PT INCONTINENT OF BLADDER WITH PERICARE PROVIDED. TURNED AND REPOSITIONED EVERY TWO HOURS. CALL LIGHT IN EASY REACH. NO S/S OF DISTRESS.
--- NOTE | 2020-01-26 09:18 | NUR ---
covid test completed and sent to lab
[2020-01-26 20:00] VITALS: BP 127/65
[2020-01-27] VITALS: BP 109/59; TEMP 98.6
[2020-01-27 04:00] VITALS: BP 109/58; TEMP 97.9
--- NOTE | 2020-01-27 15:15 | NUR ---
ASSISTED PATIENT WITH TRANSFER BACK TO BED WITHOUT DIFFICULTY. NAD NOTED WITH PATIENT AT THIS TIME.
[2020-01-27 20:00] VITALS: BP 125/58; TEMP 98.5
[2020-01-28] VITALS (7 sets, daily range): BP systolic 113–170; BP diastolic 52–82; TEMP 97.7–98.7
--- NOTE | 2020-01-28 21:00 | NUR ---
PT RESTING IN BED, O2@ 4L/MINUTE VIA NC, URINAL EMPTIED WITH 200 CC STRAW COLORED URINE, NO C/O VOICED OF PT,NAD NOTED, RESP UNLABORED AT THIS TIME. WILL CON'T TO OBSERVE.
[2020-01-29 03:47] VITALS: BP 133/54; TEMP 98.1
--- NOTE | 2020-01-29 10:17 | NUR ---
rec call from Mario Westfall [phone] asking when he could come to pharmacy picking tech pt for discharge home. I spoke with him in detail to make sure he understood that Mr. Urena will need assist with all ADL's and 24 hour care. He states he has spoke to Tami Morin @ [facility] and that they are meeting them at home today and have already delivered his home oxygen concentrator and portable bottles. He was advised that [facility] would only be able to send a nurse to the home 2 x per week for one hour but could send a QI SPECIALIST also to assist in the home on the days that the nurse was not there. He also stated that they already had a hsopital bed in the home for pt and that he also has a power scooter at the home. I also spoke with Tami Morin @ [facility] [phone] and she also stated she would consult family welfare social work professor to see what other services they could arrange for the pt. i will fax her the order at [phone] and i will ask nursing to call her and to call the pts son when they receive discharge orders. I spoke to patient and he is in agreement with all of the above.
--- NOTE | 2020-01-29 11:01 | NUR ---
PATIENT C/O BURNING ON BOTTOM, I ROLLED HIM OVER BOTTOM HAS PEELING DRY SKIN ON BOTTOME WITH A SMALL SCRATCED ARE TO RIGHT INNER BUTTOCK CREAM APPLIED TO BOTTOM
[2020-01-29] MEDS ORDERED: REMERON 15MG TAB PO (11:36)
--- NOTE | 2020-01-29 15:06 | NUR ---
PATIENTS RIDE IS HERE, I TRANSPORTED PATIENT IN W/C WITH PORTABLE OXYGEN INFUSING AT 3L/M PER N/C TO THE ER ENTRANCE AND TRANSFERED HIM TO SONS TRUCK ATTACHED N/C TO PATIENTS PERSONAL PORTABLE OXYGEN
== END 2020-01-29 15:17 | disposition home or self-care (01) | DRG 177 ==
LOC: ED 10:02 → MED/SURG 14:25 → ICU 01-18 15:30 → MED/SURG 01-22 16:50
PROVIDERS: Internal Medicine; ADMIT Family Medicine
DX: U07.1 COVID-19 (principal); J96.01 Acute respiratory failure with hypoxia; N17.8 Other acute kidney failure; I25.10 Atherosclerotic heart disease of native coronary artery without angina pectoris; Z86.73 Personal history of transient ischemic attack (TIA), and cerebral infarction without residual deficits; N40.0 Benign prostatic hyperplasia without lower urinary tract symptoms; E03.8 Other specified hypothyroidism; K21.9 Gastro-esophageal reflux disease without esophagitis; E11.22 Type 2 diabetes mellitus with diabetic chronic kidney disease; I12.9 Hypertensive chronic kidney disease with stage 1 through stage 4 chronic kidney disease, or unspecified chronic kidney disease; N18.3 Chronic kidney disease, stage 3 (moderate); R62.7 Adult failure to thrive; F32.89 Other specified depressive episodes
CPT/HCPCS: 36415; 36416; 80048; 80053; 81000; 82550; 82728; 82947; 83605; 83880; 84439; 84443; 84484; 85027; 85379; 87040; 87635; 93005; 94640; 94664; 94668; 94760; 96365; 96372; 99284; G2023; J0360; J0456; J1100; J1650; J1815; J1956; J2060; J2405; U00003

== ENCOUNTER 2020-02-07 22:13 | Emergency (ER) | payer OTHER ==
[~2020-02-07] VITALS: Ht 172.7 cm; Wt 72.6 kg
[2020-02-07 22:13] VITALS: TEMP 98
[~2020-02-07 22:13] MED LIST changes: +DICL1GEL2 TOP; +HYDROCODONE BIT1 TA1 PO; +REMERON 15MG TAB PO; +TESSALON PER100 MG PO
[2020-02-07 23:30] VITALS: BP 45/28
[2020-02-08 00:04] LABS: PLATELET COUNT 158 K/uL (142-355)
[2020-02-08 00:09] LABS: PARTIAL THROMBOPLASTIN TIME 41.3 SECONDS (24.5-33.6)
[2020-02-08 00:31] LABS: POTASSIUM 8.4 mmol/L (3.6-5.2)
== END 2020-02-08 01:15 | disposition expired ==
LOC: ED 22:13
PROVIDERS: Hospitalist
PROC: 0T9B70Z Drainage of Bladder with Drainage Device, Via Natural or Artificial Opening (ICD-10-PCS; principal; 2020-02-07)
PROC: 0BH17EZ Insertion of Endotracheal Airway into Trachea, Via Natural or Artificial Opening (ICD-10-PCS; 2020-02-07)
PROC: 5A1935Z Respiratory Ventilation, Less than 24 Consecutive Hours (ICD-10-PCS; 2020-02-07)
PROC: 5A12012 Performance of Cardiac Output, Single, Manual (ICD-10-PCS; 2020-02-07)
DX: I46.2 Cardiac arrest due to underlying cardiac condition (principal); A41.9 Sepsis, unspecified organism; I24.9 Acute ischemic heart disease, unspecified; R06.02 Shortness of breath; Z95.0 Presence of cardiac pacemaker
CPT/HCPCS: 36415; 51702; 80053; 82550; 82805; 83605; 83880; 84484; 85027; 85610; 85730; 92950; 96360; 96361; 96375; 96376; 99291; J0171; J0461; J1815; J1940; J3490; J7060